=== PATIENT | male | born 1965 | race Caucasian/White ===

== ENCOUNTER 2017-12-02 14:35 | Emergency (ER) | payer OTHER ==
[~2017-12-02] VITALS: Ht 180.3 cm; Wt 108.6 kg
[~2017-12-02 14:35] MED LIST: BACTRIM DS1 TAB PO; BENAZEPRIL HCL20 MG PO; CLOPIDOGREL75 MG PO; COQ10100 MG OR; FISH OIL1200 M1 PO; LOTENSIN20 MG PO; METOPROLOL SUC100 MG PO; METOPROLOL TART50 MG PO; MULT1 PO; MUPIROCIN2 % EX; NAPROSYN500 MG PO; PAROXETINE10 MG PO; PLAVIX75 MG PO; SIMVASTATIN40 MG PO; TET/DIP TOX1 ML IM
[2017-12-02] MEDS ORDERED: VOLTAREN1%GEL TOP (15:37)
[2017-12-02] MEDS ORDERED: CYCLOBENZAPRINE5 MG PO (15:37)
[2017-12-02 15:40] VITALS: BP 159/96
[2017-12-02] MEDS ORDERED: PLAVIX75 MG PO (15:46)
[2017-12-02] MEDS ORDERED: ASPIRIN81 MG PO (15:46)
[2017-12-02] MEDS ORDERED: AMLOD/BENAZP1 CA5 PO (15:47)
== END 2017-12-02 15:50 | disposition home or self-care (01) | DRG 552 ==
LOC: ED 14:35
DX: M54.5 Low back pain (principal); X50.0XXA Overexertion from strenuous movement or load, initial encounter; Y93.89 Activity, other specified; Y92.89 Other specified places as the place of occurrence of the external cause

== ENCOUNTER 2017-12-20 08:01 | Day surgery (SDC) | payer OTHER ==
[~2017-12-20 08:01] MED LIST changes: +AMLOD/BENAZP1 CA5 PO; +ASPIRIN81 MG PO; +CYCLOBENZAPRINE5 MG PO; +VOLTAREN1%GEL TOP
[2017-12-20 08:54] LABS: HEMATOCRIT 41.3 % (39.0-50.0); HEMOGLOBIN 14.5 g/dl (14.0-18.0); IMMATURE GRANULOCYTES 0.6 % (0.0-1.0); MEAN CELL VOLUME 93.7 fL CALC (80.0-100.0); MEAN CORPUSCULAR HGB 32.9 pG CALC (26.0-32.0); MEAN CORPUSCULAR HGB CONC 35.1 g/L CALC (32.0-36.0); NEUT# 4.58 thou/uL (1.82-7.42); RED BLOOD COUNT 4.41 mill/uL (4.70-6.10); RED CELL DISTRI WIDTH 12.2 % (11.5-15.5)
[2017-12-20 09:28] LABS: ALBUMIN 4.1 g/dL (3.2-5.0); ALKALINE PHOSPHATASE 93 u/l (38-126); ANION GAP 17 (6-22 (CALC)); BILIRUBIN, TOTAL 0.4 mg/dL (0.0-1.4); BUN 16 mg/dL (9-20); BUN/CREATININE RATIO 15 (12-20 (CALC)); CARBON DIOXIDE 23 mmol/l (22-30); CHLORIDE 107 mmol/l (95-108); CREATININE 1.1 mg/dL (0.7-1.3); GFR > 60 ML/MIN (>=60 (CALC)); GFR FOR AFR.AMER. > 60 ML/MIN (>=60 (CALC)); POTASSIUM 4.3 mmol/l (3.5-5.1); SGOT/AST 28 u/l (17-59); SGPT/ALT 48 u/l (21-72); SODIUM 143 mmol/l (137-146); TOTAL PROTEIN 6.9 g/dL (6.3-8.2)
[2017-12-20] MEDS ORDERED: TORADOL PO (11:45)
[2017-12-20] MEDS ORDERED: PERCOCET 5/325M1 TAB PO (11:46)
[2017-12-20 13:54] VITALS: BP 113/64
== END 2017-12-20 13:16 | disposition home or self-care (01) | DRG 355 ==
LOC: ORM 08:01
PROVIDERS: ATTEND Surgery
PROC: 0WUF0JZ Supplement Abdominal Wall with Synthetic Substitute, Open Approach (ICD-10-PCS; principal; 2017-12-20)
DX: K43.9 Ventral hernia without obstruction or gangrene (principal); K42.9 Umbilical hernia without obstruction or gangrene; F17.210 Nicotine dependence, cigarettes, uncomplicated